=== PATIENT | male | born 1985 ===

== ENCOUNTER 2018-01-11 14:56 | Inpatient (IN) | payer MEDICARE, MEDICAID ==
[2018-01-11 14:56] VITALS: BMI 20.2
[2018-01-11 15:18] VITALS: O2SAT 98
--- NOTE | 2018-01-11 15:41 | ED PDOC ---
HPI: Psych/Substance Abuse Time Seen by Provider: 01/11/18 15:21 Chief Complaint (Nursing): Psychiatric Evaluation Chief Complaint (Provider): Psychiatric Evaluation History Per: Patient History/Exam Limitations: no limitations Onset/Duration Of Symptoms: Days (x6 weeks) Current Symptoms Are (Timing): Still Present Additional Complaint(s): 32 year old male with a history of depression, bipolar disorder, and paranoid schizophrenia (noting he has been off medication for over a year) presents to the ED for psychiatric evaluation. Patient states he has been feeling suicidal the past six weeks ever since him and his girlfriend broke up. He reports he does not currently have a specific plan, but in the past he admits to prior attempts by hanging himself. Otherwise, (-) physical complaints, (-) auditory hallucinations, (-) visual hallucinations, (-) homicidal ideation. PMD: Luis Lew Past Medical History Reviewed: Historical Data, Nursing Documentation, Vital Signs Vital Signs: Last Vital Signs Temp 97 F L 01/11/18 15:15 Pulse 110 H 01/11/18 15:15 Resp 20 01/11/18 15:15 BP 113/76 01/11/18 15:15 Pulse Ox 98 01/11/18 15:15 - Medical History PMH: Anxiety, Bipolar Disorder, Depression, Paranoia, Personality Disorder ( Borderline Personality), Schizophrenia - Surgical History Other surgeries: wisdom teeth extraction - Family History Family History: States: Unknown Family Hx - Social History Current smoker - smoking cessation education provided: No Alcohol: None Drugs: Cannabis - Home Medications Home Medications: Ambulatory Orders Medication Instructions Recorded No Known Home Med 12/24/17 - Allergies Allergies/Adverse Reactions: Allergies Allergy/AdvReac Type Severity Reaction Status Date / Time olanzapine [From Zyprexa] AdvReac RASH Verified 01/11/18 15:14 Review of Systems ROS Statement: Except As Marked, All Systems Reviewed And Found Negative Psych: Positive for: Suicidal ideation (but no homicidal ideation). Negative for: Other (auditory or visual hallucinations) Physical Exam - Reviewed Nursing Documentation Reviewed: Yes Vital Signs Reviewed: Yes - Physical Exam Comments: GENERAL APPEARANCE: Patient is awake, alert, oriented x 3, in no acute distress. Avoids eye contact with examiner. SKIN: Warm, dry; (-) cyanosis EYES: (-) conjunctival pallor, (-) scleral icterus, (-) nystagmus. ENMT: Mucous membranes moist. Airway patent: (-) stridor. NECK: Supple, FROM (-) tenderness, (-) stiffness, (-) lymphadenopathy. HEART AND CARDIOVASCULAR: (-) irregularity; (-) murmur, (-) gallop. CHEST AND RESPIRATORY: (-) rales, (-) rhonchi, (-) wheezes; breath sounds equal. Respirations even and nonlabored. ABDOMEN: Soft, (-) distention, (-) tenderness, (-) guarding. NEURO AND PSYCH: Mental status as above. 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 Pupils equal and reactive; EOMI and painless; (-) facial asymmetry; uvula midline. Gait steady, speech clear. - Laboratory Results Result Diagrams: 01/11/18 17:22 01/11/18 17:22 - ECG O2 Sat by Pulse Oximetry: 98 (RA) Pulse Ox Interpretation: Normal Medical Decision Making Medical Decision Making: Time: 15:24 Initial Impression: psychiatric evaluation, depression Initial Plan: --1:1 obsevation --Crisis evaluation --Re-evaluation 1635 Per crisis evaluation, patient to be admitted for schizophrenia per Dr Thomas. CBC, CMP, U/A, Urine drug screen, and Alcohol serum ordered. 1800 On exam, patient remains AAOx3, in no acute distress. On exam, neck is supple, lungs CTA, cardiac RRR, abdomen is soft and non-tender, neuro exam shows no focal findings. Repeat HR: 89. Vitals stable. Labs reviewed and grossly unremarkable. Utox (+) cannabinoids. Arrangements made for admission to psychiatry. Scribe Attestation: Documented by Stephanie Otoole, acting as a scribe for Ping Castillo PA-C. Provider Scribe Attestation: All medical record entries made by the Scribe were at my direction and personally dictated by me. I have reviewed the chart and agree that the record accurately reflects my personal performance of the history, physical exam, medical decision making, and the department course for this patient. I have also personally directed, reviewed, and agree with the discharge instructions and disposition. Disposition - Clinical Impression Clinical Impression: Schizophrenia - Patient ED Disposition Is Patient to be Admitted: Yes Counseled Patient/Family Regarding: Diagnosis - Disposition Disposition Time: 18:04 Condition: FAIR - Pt Status Changed To: Hospital Disposition Of: Inpatient - Admit Certification Admit to Inpatient:: After my assessment, the patient will require hospitalization for at least two midnights. This is because of the severity of symptoms shown, intensity of services needed, and/or the medical risk in this patient being treated as an outpatient. - POA Present On Arrival: None Results - Lab Results Lab Results: 01/11/18 01/11/18 01/11/18 17:22 17:22 17:22 WBC 5.7 RBC 4.18 L Hgb 12.6 Hct 37.3 MCV 89.0 MCH 30.2 MCHC 33.9 RDW 13.4 Plt Count 244 MPV 7.5 Neut % (Auto) 49.7 L Lymph % (Auto) 31.4 Lassen % (Auto) 15.7 H Eos % (Auto) 2.6 Baso % (Auto) 0.6 Neut # (Auto) 2.8 Lymph # (Auto) 1.8 Lassen # (Auto) 0.9 H Eos # (Auto) 0.1 Baso # (Auto) 0.0 Sodium Potassium Chloride Carbon Dioxide Anion Gap BUN Creatinine Est GFR ( Amer) Est GFR (Non-Af Amer) Random Glucose Calcium Total Bilirubin AST ALT Alkaline Phosphatase Total Protein Albumin Globulin Albumin/Globulin Ratio Urine Color Straw Urine Clarity Clear Urine pH 6.0 Ur Specific [place] 1.008 Urine Protein Negative Urine Glucose (UA) Neg Urine Ketones Negative Urine Blood Negative Urine Nitrate Negative Urine Bilirubin Negative Urine Urobilinogen 0.2-1.0 Ur Leukocyte Esterase Neg Urine RBC (Auto) < 1 Urine Microscopic WBC 1 Ur Squamous Epith Cells < 1 Urine Bacteria Rare Urine Opiates Screen Negative Urine Methadone Screen Negative Ur Barbiturates Screen Negative Ur Phencyclidine Scrn Negative Ur Amphetamines Screen Negative U Benzodiazepines Scrn Negative U Oth Cocaine Metabols Negative U Cannabinoids Screen Positive H Alcohol, Quantitative 01/11/18 17:22 WBC RBC Hgb Hct MCV MCH MCHC RDW Plt Count MPV Neut % (Auto) Lymph % (Auto) Lassen % (Auto) Eos % (Auto) Baso % (Auto) Neut # (Auto) Lymph # (Auto) Lassen # (Auto) Eos # (Auto) Baso # (Auto) Sodium 139 Potassium 4.0 Chloride 103 Carbon Dioxide 25 Anion Gap 15 BUN 7 L Creatinine 0.8 Est GFR ( Amer) > 60 Est GFR (Non-Af Amer) > 60 Random Glucose 92 Calcium 8.4 Total Bilirubin 0.3 AST 20 ALT 26 Alkaline Phosphatase 74 Total Protein 6.2 L Albumin 3.8 Globulin 2.4 Albumin/Globulin Ratio 1.6 Urine Color Urine Clarity Urine pH Ur Specific [place] Urine Protein Urine Glucose (UA) Urine Ketones Urine Blood Urine Nitrate Urine Bilirubin Urine Urobilinogen Ur Leukocyte Esterase Urine RBC (Auto) Urine Microscopic WBC Ur Squamous Epith Cells Urine Bacteria Urine Opiates Screen Urine Methadone Screen Ur Barbiturates Screen Ur Phencyclidine Scrn Ur Amphetamines Screen U Benzodiazepines Scrn U Oth Cocaine Metabols U Cannabinoids Screen Alcohol, Quantitative < 10
[2018-01-11 17:29] LABS: BASO % 0.6 % (0.0-2.0); EOS # 0.1 K/uL (0.0-0.7); EOS % 2.6 % (0.0-4.0); HEMOGLOBIN 12.6 g/dL (12.0-18.0); LYMPH # 1.8 K/uL (1.0-4.3); LYMPH % 31.4 % (20.0-40.0); MEAN CORPUSCULAR HEMOGLOBIN 30.2 pg (27.0-31.0); MEAN CORPUSCULAR HGB CONC 33.9 g/dL (33.0-37.0); MEAN PLATELET VOLUME 7.5 fl (7.2-11.7); MONO # 0.9 K/uL (0.0-0.8); MONO % 15.7 % (0.0-10.0); NEUT # 2.8 K/uL (1.8-7.0); NEUT % 49.7 % (50.0-75.0); NRBC % 0.1 % (0.0-0.0); RBC 4.18 Mil/uL (4.40-5.90); RED CELL DISTRIBUTION WIDTH 13.4 % (11.5-14.5); WHITE BLOOD COUNT 5.7 K/uL (4.8-10.8)
[2018-01-11 17:30] LABS: SQUAMOUS EPITHIAL < 1 /hpf (0-5); URINE BACTERIA RARE (<OCC); URINE BILIRUBIN NEGATIVE (NEGATIVE); URINE BLOOD NEGATIVE (NEGATIVE); URINE CLARITY CLEAR (Clear); URINE COLOR STRAW (YELLOW); URINE GLUCOSE (UA) NEG (Normal); URINE LEUKOCYTE ESTERASE NEG Leu/uL (Negative); URINE PROTEIN NEGATIVE (NEGATIVE); URINE UROBILINOGEN 0.2-1.0 mg/dL (0.2-1.0)
[2018-01-11 17:48] LABS: ALB/GLOB RATIO 1.6 (1.0-2.1); ALBUMIN 3.8 g/dL (3.5-5.0); ALT/SGPT 26 U/L (21-72); AST/SGOT 20 U/L (17-59); BLOOD UREA NITROGEN 7 mg/dl (9-20); CALCIUM 8.4 mg/dL (8.4-10.2); GFR AFRICAN-AMERICAN > 60; GFR NON-AFRICAN AMERICAN > 60
[2018-01-11 17:56] LABS: BARBITURATES, UR NEGATIVE (NEGATIVE); BENZODIAZEPINES, UR NEGATIVE (NEGATIVE); OPIATES, UR NEGATIVE (NEGATIVE); PHENCYCLIDINE, UR NEGATIVE (NEGATIVE)
[2018-01-11] MEDS ORDERED: DiphenhydrAMINE 50 mg/ml Inj IM PRN (20:19)
[2018-01-11] MEDS ORDERED: Magnesium Hydroxide Susp 30 ml UD PO PRN (20:19)
[2018-01-11] MEDS ORDERED: Alum-Mag Hydrox-Simethicone Susp (30 mL) PO PRN (20:19)
--- NOTE | 2018-01-11 20:37 | PCM.BM ---
<Shantel Hurd - Last Filed: 01/11/18 20:36> Treatment Plan Problems - Problems identified on initial assessmt Altered Sleep Patterns Date Initiated: 01/11/18 Time Initiated: 20:36 Assessment reference: NA Status: Active Medication nonadherence Date Initiated: 01/11/18 Time Initiated: 20:36 Assessment reference: NA Status: Active Treatment assets and liabiliti Patient Assests: cooperative, resourceful, self-reliant, ADL independent, physically healthy, negotiates basic needs, cognitively intact Patient Liabilities: live alone, financial problems, poor support system, relationship conflicts, substance abuse - Milieu Protocol Maintain good personal hygiene: daily Encourage regular showers, daily Remind patient to perform daily oral care, daily Assist patient to perform ADL's Conduct patient checks and document Observation sheet: Q15 minutes Maintain personal safety: every shift Educate patient to report safety concerns to staff, every shift Monitor environment for contraband/sharps Medication safety: Monitor for expected outcome, potential side effects: every shift, Assess barriers to learning: every shift, Assess readiness for medication education: every shift <Lisha Thomas - Last Filed: 01/15/18 09:23> - Diagnosis (1) Schizophrenia Status: Chronic Interventions: Medication management, Individual and group therapy, Psychoeducation 01/15/18 09:23 <Lino Mendoza - Last Filed: 01/16/18 11:18> Treatment Plan Problems - Problems identified on initial assessmt Altered Thought Process Date Initiated: 01/14/18 Time Initiated: 10:16 Assessment reference: NA Status: Active Family Contact Family involvement: Family/SO is involved Family contact: Patient declines to allow family contact at present Family contact name: Pt declined. - Goals for Treatment Patient goals for treatment: Pt reported he would like to be restarted on the correct medications so he can concentrate, organize his thoughts and his hallucinations and delusions can be diminished. Discharge/Continuing Care - Education Needs Education Needs: Family Medication, Family Diagnosis/Disease Process, Family Coping Skills, Family Community resources, Family Aftercare Safety Plan, Patient Medication, Patient Diagnosis/Disease Process, Patient Coping Skills, Patient Community resources, Patient Aftercare Safety Plan - Discharge Discharge Criteria: Tolerates medication w/o severe side effects, Free of paranoid thoughts, Free of agitation, Normal sleep pattern, Ability to care for self, Reduction of target symptoms Discharge to:: Other ([facility].) - Treatment Team Participation Patient/Family/SO Statement: 01/15/18 11:18 Pt reported that his anxiety goes up and down, and he is having a difficult time getting a hold of it. Pt admitted to feeling depressed recently with symptoms of uneasiness and paranoia. Pt admitted that the paranoia makes him feel unsafe on the unit. Palperidone injection given on 01/14/18 with next one scheduled for 01/21/18. Discussed with Family/SO: No Was Patient/Family/SO present at Treatment Team Meeting: Yes <Srikanth Rolle - Last Filed: 01/25/18 08:30> - Diagnosis (1) Psychosis Status: Acute Interventions: pharmacotherapy 01/25/18 08:30
[2018-01-12 10:37] LABS: T4 4.88 ug/dl (5.5-11.0)
--- NOTE | 2018-01-12 10:46 | PCM.PSYCH ---
Initial Psychiatric Evaluation - Initial Psychiatric Evaluation Type of Admission: Voluntary Legal Status: Capacity Chief Complaint (in patient's own words): "I'm depressed and suicidal." Patient's Reaction to Hospitalization: HPI: 32 yo male w/ h/o schizophrenia presents w/ worsening depression, suicidal ideation and auditory/visual/tactile hallucinations in the context of non- compliance with treatment and medications. Patient reports that he has an "understanding" of things around him and can hear things, see things and even feel things on his body, but he was unable to specify what that means. He denies current SI, but states that he had SI yesterday w/o specific plan. NO HI. +Paranoia that people are watching him and telling others to "keep an eye on me." He feels like he is under constant observation. He does not want to take Seroquel, Risperdal or Haldol at this time. PPHx: Multiple past voluntary and involuntary psychiatric admissions PMHx: Denies acute medical issues ALL: Zyprexa (rash) SHx: Lives at [facility], smokes MJ; smokes 4 cig/day (declined smoking cessation); denies ETOH Current Medications: Active Medications Generic Name Dose Route Start Last Admin Trade Name Freq PRN Reason Stop Dose Admin Acetaminophen 650 mg 01/11/18 20:19 Tylenol 325mg Tab PO Q4 PRN pain level 4-7 Al Hydrox/Mg Hydrox/Simethicone 30 ml 01/11/18 20:19 Maalox Plus 30 Ml PO Q4 PRN Dyspepsia Diphenhydramine HCl 50 mg 01/11/18 20:19 Benadryl IM Q6 PRN Extrapyramidal S/S Unable PO Diphenhydramine HCl 50 mg 01/11/18 20:19 Benadryl PO Q6 PRN Extrapyramidal Symptoms Diphenhydramine HCl 50 mg 01/11/18 20:28 Benadryl PO HS PRN Sleep Haloperidol 5 mg 01/11/18 20:19 Haldol PO Q4 PRN Agitation Haloperidol Lactate 5 mg 01/11/18 20:19 Haldol IM Q4 PRN Agitation, Unable to Take PO Lorazepam 1 mg 01/11/18 20:19 Ativan IM Q8 PRN Anxiety/Agitation,Unable PO Lorazepam 1 mg 01/11/18 20:19 Ativan PO Q8 PRN Anxiety/Agitation Magnesium Hydroxide 30 ml 01/11/18 20:19 Milk Of Magnesia PO HS PRN Constipation Paliperidone 6 mg 01/12/18 10:45 Invega PO DAILY JAMES Past Psychiatric History - Past Psychiatric History Previous Treatment History: Inpatient Pertinent Medical Hx (Current Medical&Sleep Prob, Allergies): Allergies Allergy/AdvReac Type Severity Reaction Status Date / Time olanzapine [From Zyprexa] AdvReac RASH Verified 01/11/18 15:14 No Known Home Med 12/24/17 Review of Systems - Psychiatric Psychiatric: As Per HPI, Auditory Hallucinations, Depression, Difficulty Concentrating, Hallucinations, Hopelessness, Paranoia, Suicidal Ideation, Visual Hallucinations, Tactile Hallucinations Mental Status Examination - Personal Presentation Personal Presentation: Looks stated age - Affect Affect: Constricted - Motor Activity Motor Activity: Calm - Reliability in Providing Information Reliability in Providing Information: Poor, due to alteration in thoughts - Speech Speech: Disorganized, Coherent - Mood Mood: Depressed - Formal Thought Process Formal Thought Process: Hallucinations, Delusions, Paranoia, Loosening of associations - Hallucinations/Delusions Hallucinations: Visual, Auditory - Obsessions/Compulsions Obsessions: No Compulsions: No - Cognitive Functions Orientation: Person, Place, Situation, Time Sensorium: Alert Attention/Concentration: Attentive Estimate of Intelligence: Average Judgement: Imparied, as evidence by: Poor judgement Memory: Recent intact, as evidence by: Ability to recall events of the day - Risk Risk: Diminished functioning - Strength & Assets Inventory Strength & Assets Inventory: Cooperative DSM 5 DX - DSM 5 DSM 5 Diagnosis: Schizophrenia - Recommended/Plan of Treatment Treatment Recommendations and Plan of Treatment: Schizophrenia -Admit to psychiatry unit -Start Invega and Klonopin -Individual and group therapy -Medicine consult -Psychoeducation -Disposition planning Projected ELOS: 7-14 days Discharge Plan and Discharge Criteria: Discharge when patient is psychiatrically stable - Smoking Cessation Smoking Cessation Initiated: No Reason for not providing: Patient declined
[2018-01-12] MEDS: Paliperidone 6 MG ER TAB PO SCH (12:42)
--- NOTE | 2018-01-12 18:52 | CP.PCM.CON ---
History of Present Illness - History of Present Illness History of Present Illness: 32 yo male with history of schizophrenia admitted in psyche unit because of worsening depression and suicidal ideation. Review of Systems - Review of Systems All systems: reviewed and no additional remarkable complaints except (aside from those mentioned above, 12 point system review were negative by me) Past Patient History - Infectious Disease Hx of Infectious Diseases: None - Tetanus Immunizations Tetanus Immunization: Up to Date - Past Social History Smoking Status: Light Smoker < 10 Cigarettes Daily Chewing Tobacco Use: No Cigar Use: No Alcohol: None Drugs: Cannabis - CARDIAC Hx Hypertension: No - PULMONARY Hx Tuberculosis: No - NEUROLOGICAL Hx Seizures: No - HEENT Hx HEENT Problems: No - RENAL Hx Chronic Kidney Disease: No - ENDOCRINE/METABOLIC Hx Endocrine Disorders: No - HEMATOLOGICAL/ONCOLOGICAL Hx Human Immunodeficiency Virus (HIV): No - INTEGUMENTARY Hx Dermatological Problems: No - MUSCULOSKELETAL/RHEUMATOLOGICAL Hx Musculoskeletal Disorders: No - GASTROINTESTINAL Hx Gastrointestinal Disorders: No - GENITOURINARY/GYNECOLOGICAL Hx Sexually Transmitted Disorders: No - PSYCHIATRIC Hx Substance Use: Yes (THC) - SURGICAL HISTORY Hx Surgeries: No - ANESTHESIA Hx Anesthesia: No Meds Allergies/Adverse Reactions: Allergies Allergy/AdvReac Type Severity Reaction Status Date / Time olanzapine [From Zyprexa] AdvReac RASH Verified 01/11/18 15:14 - Medications Medications: Current Medications Acetaminophen (Tylenol 325mg Tab) 650 mg PO Q4 PRN PRN Reason: pain level 4-7 Al Hydrox/Mg Hydrox/Simethicone (Maalox Plus 30 Ml) 30 ml PO Q4 PRN PRN Reason: Dyspepsia Clonazepam (Klonopin) 0.5 mg PO BID JAMES Last Admin: 01/12/18 17:42 Dose: 0.5 mg Diphenhydramine HCl (Benadryl) 50 mg IM Q6 PRN PRN Reason: Extrapyramidal S/S Unable PO Diphenhydramine HCl (Benadryl) 50 mg PO Q6 PRN PRN Reason: Extrapyramidal Symptoms Diphenhydramine HCl (Benadryl) 50 mg PO HS PRN PRN Reason: Sleep Haloperidol (Haldol) 5 mg PO Q4 PRN PRN Reason: Agitation Haloperidol Lactate (Haldol) 5 mg IM Q4 PRN PRN Reason: Agitation, Unable to Take PO Lorazepam (Ativan) 1 mg IM Q8 PRN PRN Reason: Anxiety/Agitation,Unable PO Lorazepam (Ativan) 1 mg PO Q8 PRN PRN Reason: Anxiety/Agitation Magnesium Hydroxide (Milk Of Magnesia) 30 ml PO HS PRN PRN Reason: Constipation Paliperidone (Invega) 6 mg PO DAILY JAMES Last Admin: 01/12/18 12:42 Dose: 6 mg Physical Exam - Constitutional Appears: No Acute Distress - Head Exam Head Exam: ATRAUMATIC - Eye Exam Eye Exam: absent: Scleral icterus - ENT Exam ENT Exam: Mucous Membranes Moist - Neck Exam Neck exam: Negative for: Meningismus - Respiratory Exam Respiratory Exam: absent: Rales, Rhonchi, Wheezes, Respiratory Distress - Cardiovascular Exam Cardiovascular Exam: REGULAR RHYTHM, +S1, +S2 - GI/Abdominal Exam GI & Abdominal Exam: Soft. absent: Tenderness - Rectal Exam Rectal Exam: Deferred - Extremities Exam Extremities exam: Negative for: calf tenderness, pedal edema - Back Exam Back exam: NORMAL INSPECTION - Neurological Exam Neurological exam: Alert, Oriented x3 - Psychiatric Exam Psychiatric exam: Anxious - Skin Skin Exam: Dry, Intact Results - Vital Signs Recent Vital Signs: Last Vital Signs Temp 97.5 F L 01/12/18 10:15 Pulse 79 01/12/18 10:15 Resp 18 01/12/18 10:15 BP 115/75 01/12/18 10:15 Pulse Ox 98 01/11/18 18:11 - Labs Result Diagrams: 01/11/18 17:22 01/11/18 17:22 Labs: Laboratory Results - last 24 hr 01/12/18 09:41 Triglycerides 106 Cholesterol 138 LDL Cholesterol Direct 67 HDL Cholesterol 46 Thyroxine (T4) 4.88 L TSH 3rd Generation 1.31 Assessment & Plan (1) Depression Status: Acute Comment: psyche is managing
--- NOTE | 2018-01-13 08:09 | PCM.PYCHPN ---
Psychiatric Progress Note - Psychiatric Progress Note Patient seen today, length of contact: Patient evaluated, case discussed with team, chart reviewed Patient Chief Complaint: "I'm depressed." Problems Identified/Issues Discussed: Patient continues to report feeling that he has a special "understanding" of things. He continues to be paranoid that people are watching him. He continues to be depressed but denies active suicidal ideation/plan/intent. No adverse effects to medications reported. Medication Change: No Medical Record Reviewed: Yes Consults ordered or reviewed: Medicine consult Mental Status Examination - Cognitive Function Orientation: Person, Place, Situation, Time Memory: Intact Attention: WNL Concentration: WNL Association: Loose Fund of Knowledge: WNL Decription of patient's judgement and insights: Poor I/J - Mood Mood: Depressed - Affect Affect: Constricted - Formal Thought Process Formal Thought Process: Hallucinations, Delusions, Paranoia, Loosening of associations Psychotic Thoughts and Behaviors: +special "understanding" and paranoia - Suicidal Ideation Suicidal Ideation: No - Homicidal Ideation Homicidal Ideation: No Goal/Treatment Plan - Goal/Treatment Plan Need for Continued Stay: Remain at risks for inpatient hospitalization, Severe depression anxiety, Discharge may exacerbated symptoms Progress Toward Problem(s) and Goals/Treatment Plan: Schizophrenia -Continue Invega and Klonopin -Individual and group therapy -Medicine consult -Psychoeducation -Disposition planning Estimated Date of D/C: 01/18/18
[2018-01-13] MEDS: Paliperidone 6 MG ER TAB PO SCH (08:28)
[2018-01-14] MEDS: Paliperidone 6 MG ER TAB PO SCH (09:04)
[2018-01-14] MEDS ORDERED: Paliperidone Palmitate 234 MG/1.5 ML SYR IM ONE (09:58)
--- NOTE | 2018-01-14 10:01 | PCM.PYCHPN ---
Psychiatric Progress Note - Psychiatric Progress Note Patient seen today, length of contact: Patient evaluated, case discussed with team, chart reviewed Patient Chief Complaint: "I'm depressed." Problems Identified/Issues Discussed: Patient continues to report feeling that he has a special "understanding" of things. +Continued paranoia and AH. He continues to be depressed but denies active suicidal ideation/plan/intent. No adverse effects to medications reported. We discussed starting Paliperidone IM; r/b/se reviewed; patient is agreeable at this time. Medication Change: Yes (Start Paliperidone IM) Medical Record Reviewed: Yes Consults ordered or reviewed: Medicine consult Mental Status Examination - Cognitive Function Orientation: Person, Place, Situation, Time Memory: Intact Attention: WNL Concentration: WNL Association: Loose Fund of Knowledge: WNL Decription of patient's judgement and insights: Poor I/J - Mood Mood: Depressed - Affect Affect: Constricted - Formal Thought Process Formal Thought Process: Hallucinations, Delusions, Paranoia, Loosening of associations Psychotic Thoughts and Behaviors: +special "understanding" and paranoia - Suicidal Ideation Suicidal Ideation: No - Homicidal Ideation Homicidal Ideation: No Goal/Treatment Plan - Goal/Treatment Plan Need for Continued Stay: Remain at risks for inpatient hospitalization, Severe depression anxiety, Discharge may exacerbated symptoms Progress Toward Problem(s) and Goals/Treatment Plan: Schizophrenia -Continue Invega and Klonopin -Start Invega Sustenna 234 mg IM first dose now; second dose on 01/21/18 -Individual and group therapy -Medicine consult -Psychoeducation -Disposition planning Estimated Date of D/C: 01/23/18
--- NOTE | 2018-01-14 10:16 | PCM.BM ---
Treatment Plan Problems - Problems identified on initial assessmt Altered Sleep Patterns Date Initiated: 01/11/18 Time Initiated: 20:36 Assessment reference: NA Status: Active Medication nonadherence Date Initiated: 01/11/18 Time Initiated: 20:36 Assessment reference: NA Status: Active Altered Thought Process Date Initiated: 01/14/18 Time Initiated: 10:16 Assessment reference: NA Status: Active Treatment assets and liabiliti Patient Assests: cooperative, resourceful, self-reliant, ADL independent, physically healthy, negotiates basic needs, cognitively intact Patient Liabilities: live alone, financial problems, poor support system, relationship conflicts, substance abuse - Milieu Protocol Maintain good personal hygiene: daily Encourage regular showers, daily Remind patient to perform daily oral care, daily Assist patient to perform ADL's Conduct patient checks and document Observation sheet: Q15 minutes Maintain personal safety: every shift Educate patient to report safety concerns to staff, every shift Monitor environment for contraband/sharps Medication safety: Monitor for expected outcome, potential side effects: every shift, Assess barriers to learning: every shift, Assess readiness for medication education: every shift Milieu Narrative: Schizophrenia -Continue Invega and Klonopin -Start Invega Sustenna 234 mg IM first dose now; second dose on 01/21/18 -Individual and group therapy -Medicine consult -Psychoeducation -Disposition planning Family Contact Family involvement: Family/SO is involved Family contact: Patient declines to allow family contact at present Family contact name: Pt declined. - Goals for Treatment Patient goals for treatment: Pt reported he would like to be restarted on the correct medications so he can concentrate, organize his thoughts and his hallucinations and delusions can be diminished. Discharge/Continuing Care - Education Needs Education Needs: Family Medication, Family Diagnosis/Disease Process, Family Coping Skills, Family Community resources, Family Aftercare Safety Plan, Patient Medication, Patient Diagnosis/Disease Process, Patient Coping Skills, Patient Community resources, Patient Aftercare Safety Plan - Discharge Discharge Criteria: Tolerates medication w/o severe side effects, Free of paranoid thoughts, Free of agitation, Normal sleep pattern, Ability to care for self, Reduction of target symptoms Discharge to:: Other ([facility].) - Treatment Team Participation Patient/Family/SO Statement: Schizophrenia -Continue Invega and Klonopin -Start Invega Sustenna 234 mg IM first dose now; second dose on 7/16/18 -Individual and group therapy -Medicine consult -Psychoeducation -Disposition planning Discussed with Family/SO: No Was Patient/Family/SO present at Treatment Team Meeting: Yes
[2018-01-15] MEDS: Paliperidone 6 MG ER TAB PO SCH (08:58)
--- NOTE | 2018-01-15 10:45 | PCM.PYCHPN ---
Psychiatric Progress Note - Psychiatric Progress Note Patient seen today, length of contact: Patient evaluated, case discussed with team, chart reviewed Patient Chief Complaint: "I'm depressed." Problems Identified/Issues Discussed: Patient continues to report feeling that he has a special "understanding" of things. +Continued paranoia and AH. He continues to be depressed and anxious but denies active suicidal ideation/plan/intent. No adverse effects to medications reported. Medication Change: No Medical Record Reviewed: Yes Consults ordered or reviewed: Medicine consult Mental Status Examination - Cognitive Function Orientation: Person, Place, Situation, Time Memory: Intact Attention: WNL Concentration: WNL Association: Loose Fund of Knowledge: WNL Decription of patient's judgement and insights: Poor I/J - Mood Mood: Depressed - Affect Affect: Constricted - Formal Thought Process Formal Thought Process: Hallucinations, Delusions, Paranoia, Loosening of associations Psychotic Thoughts and Behaviors: +special "understanding" and paranoia - Suicidal Ideation Suicidal Ideation: No - Homicidal Ideation Homicidal Ideation: No Goal/Treatment Plan - Goal/Treatment Plan Need for Continued Stay: Remain at risks for inpatient hospitalization, Severe depression anxiety, Discharge may exacerbated symptoms Progress Toward Problem(s) and Goals/Treatment Plan: Schizophrenia -Continue Invega and Klonopin -Invega Sustenna 234 mg IM first dose given 01/14/18; second dose (156 mg) on 01/21 -Individual and group therapy -Medicine consult -Psychoeducation -Disposition planning Estimated Date of D/C: 01/23/18
[2018-01-16] MEDS: Paliperidone 6 MG ER TAB PO SCH (09:43)
--- NOTE | 2018-01-16 11:53 | PCM.PYCHPN ---
Psychiatric Progress Note - Psychiatric Progress Note Patient seen today, length of contact: Patient evaluated, case discussed with team, chart reviewed Patient Chief Complaint: "I'm depressed." Problems Identified/Issues Discussed: Patient continues to report feeling that he has a special "understanding" of things. +Continued AH, +Paranoia. He continues to be depressed and anxious but denies active suicidal ideation/plan/intent. No adverse effects to medications reported. Medication Change: No Medical Record Reviewed: Yes Consults ordered or reviewed: Medicine consult Mental Status Examination - Cognitive Function Orientation: Person, Place, Situation, Time Memory: Intact Attention: WNL Concentration: WNL Association: Loose Fund of Knowledge: WNL Decription of patient's judgement and insights: Poor I/J - Mood Mood: Depressed - Affect Affect: Constricted - Formal Thought Process Formal Thought Process: Hallucinations, Delusions, Paranoia, Loosening of associations Psychotic Thoughts and Behaviors: +special "understanding" and paranoia - Suicidal Ideation Suicidal Ideation: No - Homicidal Ideation Homicidal Ideation: No Goal/Treatment Plan - Goal/Treatment Plan Need for Continued Stay: Remain at risks for inpatient hospitalization, Severe depression anxiety, Discharge may exacerbated symptoms Progress Toward Problem(s) and Goals/Treatment Plan: Schizophrenia -Continue Invega and Klonopin -Invega Sustenna 234 mg IM first dose given 01/14/18; second dose (156 mg) on 01/21 -Individual and group therapy -Medicine consult -Psychoeducation -Disposition planning Estimated Date of D/C: 01/23/18
[2018-01-17] MEDS: Paliperidone 6 MG ER TAB PO SCH (08:45)
--- NOTE | 2018-01-17 10:19 | PCM.PYCHPN ---
Psychiatric Progress Note - Psychiatric Progress Note Patient seen today, length of contact: Patient evaluated, case discussed with team, chart reviewed Patient Chief Complaint: "I'm depressed." Problems Identified/Issues Discussed: Patient reports that he feels depressed and distressed that he missed a court date due to an assault charge, but states that he does not recall assaulting anyone. He denies any ideation to harm self or others. Patient continues to report feeling that he has a special "understanding" of things. +Continued AH, +Paranoia. No active suicidal ideation/plan/intent. No adverse effects to medications reported. Medication Change: No Medical Record Reviewed: Yes Consults ordered or reviewed: Medicine consult Mental Status Examination - Cognitive Function Orientation: Person, Place, Situation, Time Memory: Intact Attention: WNL Concentration: WNL Association: Loose Fund of Knowledge: WNL Decription of patient's judgement and insights: Poor I/J - Mood Mood: Depressed - Affect Affect: Constricted - Formal Thought Process Formal Thought Process: Hallucinations, Delusions, Paranoia, Loosening of associations Psychotic Thoughts and Behaviors: +special "understanding" and paranoia - Suicidal Ideation Suicidal Ideation: No - Homicidal Ideation Homicidal Ideation: No Goal/Treatment Plan - Goal/Treatment Plan Need for Continued Stay: Remain at risks for inpatient hospitalization, Severe depression anxiety, Discharge may exacerbated symptoms Progress Toward Problem(s) and Goals/Treatment Plan: Schizophrenia -Continue Invega and Klonopin -Invega Sustenna 234 mg IM first dose given 01/14/18; second dose (156 mg) on 01/21 -Individual and group therapy -Medicine consult -Psychoeducation -Disposition planning Estimated Date of D/C: 01/23/18
[2018-01-18] MEDS: Paliperidone 6 MG ER TAB PO SCH (08:33)
--- NOTE | 2018-01-18 09:58 | PCM.PYCHPN ---
Psychiatric Progress Note - Psychiatric Progress Note Patient seen today, length of contact: Patient evaluated, case discussed with team, chart reviewed Patient Chief Complaint: "I'm depressed." Problems Identified/Issues Discussed: Patient reports that he feels depressed. Patient continues to report feeling that he has a special "understanding" of things. +Continued AH, +Paranoia. No active suicidal ideation/plan/intent. No adverse effects to medications reported. Medication Change: No Medical Record Reviewed: Yes Consults ordered or reviewed: Medicine consult Mental Status Examination - Cognitive Function Orientation: Person, Place, Situation, Time Memory: Intact Attention: WNL Concentration: WNL Association: Loose Fund of Knowledge: WNL Decription of patient's judgement and insights: Poor I/J - Mood Mood: Depressed - Affect Affect: Constricted - Formal Thought Process Formal Thought Process: Hallucinations, Delusions, Paranoia, Loosening of associations Psychotic Thoughts and Behaviors: +special "understanding" and paranoia - Suicidal Ideation Suicidal Ideation: No - Homicidal Ideation Homicidal Ideation: No Goal/Treatment Plan - Goal/Treatment Plan Need for Continued Stay: Remain at risks for inpatient hospitalization, Severe depression anxiety, Discharge may exacerbated symptoms Progress Toward Problem(s) and Goals/Treatment Plan: Schizophrenia -Continue Invega and Klonopin -Invega Sustenna 234 mg IM first dose given 01/14/18; second dose (156 mg) on 01/21 -Individual and group therapy -Medicine consult -Psychoeducation -Disposition planning Estimated Date of D/C: 01/23/18
--- NOTE | 2018-01-19 09:08 | PCM.PYCHPN ---
Psychiatric Progress Note - Psychiatric Progress Note Patient seen today, length of contact: Patient evaluated, case discussed with team, chart reviewed Patient Chief Complaint: "I'm depressed." Problems Identified/Issues Discussed: Patient reports having disturbing nightmares. Patient reports that he feels depressed. Patient continues to report feeling that he has a special "understanding" of things. +Paranoia. No active suicidal ideation/plan/ intent. No adverse effects to medications reported. Medication Change: No Medical Record Reviewed: Yes Consults ordered or reviewed: Medicine consult Mental Status Examination - Cognitive Function Orientation: Person, Place, Situation, Time Memory: Intact Attention: WNL Concentration: WNL Association: Loose Fund of Knowledge: WNL Decription of patient's judgement and insights: Poor I/J - Mood Mood: Depressed - Affect Affect: Constricted - Formal Thought Process Formal Thought Process: Hallucinations, Delusions, Paranoia, Loosening of associations Psychotic Thoughts and Behaviors: +special "understanding" and paranoia - Suicidal Ideation Suicidal Ideation: No - Homicidal Ideation Homicidal Ideation: No Goal/Treatment Plan - Goal/Treatment Plan Need for Continued Stay: Remain at risks for inpatient hospitalization, Severe depression anxiety, Discharge may exacerbated symptoms Progress Toward Problem(s) and Goals/Treatment Plan: Schizophrenia -Continue Invega and Klonopin -Invega Sustenna 234 mg IM first dose given 01/14/18; second dose (156 mg) on 01/21 -Individual and group therapy -Medicine consult -Psychoeducation -Disposition planning Estimated Date of D/C: 01/23/18
[2018-01-19] MEDS: Paliperidone 6 MG ER TAB PO SCH (10:43)
[2018-01-20] MEDS: Paliperidone 6 MG ER TAB PO SCH (09:05)
[2018-01-20] MEDS ORDERED: Benzocaine/Menthol (Cepacol) Lozenge PO PRN (13:06)
--- NOTE | 2018-01-20 16:27 | PCM.PYCHPN ---
Psychiatric Progress Note - Psychiatric Progress Note Patient seen today, length of contact: Patient evaluated, case discussed with team, chart reviewed Patient Chief Complaint: pt still feels depressed and still paranoid saying special things happening with cameras looking at him and talking to him.pt remains with poor insight Medication Change: No Medical Record Reviewed: Yes Mental Status Examination - Cognitive Function Orientation: Person, Place, Situation, Time Memory: Intact Attention: WNL Concentration: WNL Association: Loose Fund of Knowledge: WNL - Mood Mood: Depressed - Affect Affect: Constricted - Formal Thought Process Formal Thought Process: Hallucinations, Delusions, Paranoia, Loosening of associations - Suicidal Ideation Suicidal Ideation: No - Homicidal Ideation Homicidal Ideation: No Goal/Treatment Plan - Goal/Treatment Plan Need for Continued Stay: Remain at risks for inpatient hospitalization, Severe depression anxiety, Discharge may exacerbated symptoms Progress Toward Problem(s) and Goals/Treatment Plan: pt has agreed to continue invega and will get his next shot tomorrow. Disposition planning as per dr jocye. Estimated Date of D/C: 01/23/18
[2018-01-21] MEDS ORDERED: Paliperidone 156 mg/1 ml Syringe IM ONE (09:00)
[2018-01-21] MEDS: Paliperidone 6 MG ER TAB PO SCH (09:35)
--- NOTE | 2018-01-21 11:47 | PCM.PYCHPN ---
Psychiatric Progress Note - Psychiatric Progress Note Patient seen today, length of contact: Patient evaluated, case discussed with team, chart reviewed Patient Chief Complaint: pt still feels very anxious and very paranoid saying special things happening with cameras looking at him and talking to him.pt remains with poor insight.pt is still having nightmares and cant sleep . Medication Change: No Medical Record Reviewed: Yes Mental Status Examination - Cognitive Function Orientation: Person, Place, Situation, Time Memory: Intact Attention: WNL Concentration: WNL Association: Loose Fund of Knowledge: WNL - Mood Mood: Depressed - Affect Affect: Constricted - Formal Thought Process Formal Thought Process: Hallucinations, Delusions, Paranoia, Loosening of associations - Suicidal Ideation Suicidal Ideation: No - Homicidal Ideation Homicidal Ideation: No Goal/Treatment Plan - Goal/Treatment Plan Need for Continued Stay: Remain at risks for inpatient hospitalization, Severe depression anxiety, Discharge may exacerbated symptoms Progress Toward Problem(s) and Goals/Treatment Plan: pt has agreed to continue invega and will get his next shot tomorrow. will add minipress 1 mg hs for nightmares . Estimated Date of D/C: 01/23/18
--- NOTE | 2018-01-22 10:42 | PCM.PYCHPN ---
Psychiatric Progress Note - Psychiatric Progress Note Patient seen today, length of contact: Patient evaluated, case discussed with team, chart reviewed Patient Chief Complaint: pt still feels internally preoccupied and fearful of the side effects of invega and does not want to continue taking it.pt is very paranoid saying special things happening with cameras looking at him and talking to him.pt remains with poor insight.pt is still having nightmares and cant sleep . Medication Change: No Medical Record Reviewed: Yes Mental Status Examination - Cognitive Function Orientation: Person, Place, Situation, Time Memory: Intact Attention: WNL Concentration: WNL Association: Loose Fund of Knowledge: WNL - Mood Mood: Depressed - Affect Affect: Constricted - Formal Thought Process Formal Thought Process: Hallucinations, Delusions, Paranoia, Loosening of associations - Suicidal Ideation Suicidal Ideation: No - Homicidal Ideation Homicidal Ideation: No Goal/Treatment Plan - Goal/Treatment Plan Need for Continued Stay: Remain at risks for inpatient hospitalization, Severe depression anxiety, Discharge may exacerbated symptoms Progress Toward Problem(s) and Goals/Treatment Plan: pt has agreed to continue invega and will get his next shot tomorrow. will add minipress 1 mg hs for nightmares . Estimated Date of D/C: 01/23/18
--- NOTE | 2018-01-23 16:49 | PCM.PYCHPN ---
Psychiatric Progress Note - Psychiatric Progress Note Patient seen today, length of contact: Patient evaluated, case discussed with team, chart reviewed Patient Chief Complaint: I am still paranoid Problems Identified/Issues Discussed: pt evaluated, reported he continues to be paranoid feeling he is being watched on the unit by unknown people, pt continues to be unkempt , not attending to personal hygiene, guarded, limited interaction with other patients, delusions of persecution and thought blocking denied any current command hallucinations, denied suicidal or homicidal ideation DSM 5 Symptoms Update: schizophrenia Medication Change: Yes (start invega oral ) Medical Record Reviewed: Yes Mental Status Examination - Cognitive Function Orientation: Person, Place, Situation, Time Memory: Intact Attention: WNL Concentration: WNL Association: Loose Fund of Knowledge: WNL - Mood Mood: Depressed - Affect Affect: Constricted - Formal Thought Process Formal Thought Process: Hallucinations, Delusions, Paranoia, Loosening of associations - Suicidal Ideation Suicidal Ideation: No - Homicidal Ideation Homicidal Ideation: No Goal/Treatment Plan - Goal/Treatment Plan Need for Continued Stay: Remain at risks for inpatient hospitalization, Severe depression anxiety, Discharge may exacerbated symptoms Progress Toward Problem(s) and Goals/Treatment Plan: restart 3mg po invega till the third cycle of invega sustenna group and supportive therapy Estimated Date of D/C: 01/25/18
[2018-01-23] MEDS: Paliperidone 3 MG ER TAB PO SCH (21:27)
--- NOTE | 2018-01-24 15:56 | PCM.PYCHPN ---
Psychiatric Progress Note - Psychiatric Progress Note Patient seen today, length of contact: Patient evaluated, case discussed with team, chart reviewed Patient Chief Complaint: I am willing to go to the program Problems Identified/Issues Discussed: pt evaluated, , less disheveled, speech more goal directed, reported feeling less paranoid and less anxious , showing more insight, agreed to join partial program on discharge denied any current command hallucinations, denied suicidal or homicidal ideation DSM 5 Symptoms Update: schizophrenia Medication Change: No Medical Record Reviewed: Yes Mental Status Examination - Cognitive Function Orientation: Person, Place, Situation, Time Memory: Intact Attention: WNL Concentration: WNL Association: WNL Fund of Knowledge: Poor Decription of patient's judgement and insights: partial insight poor judgement - Mood Mood: Depressed - Affect Affect: Constricted - Formal Thought Process Formal Thought Process: Hallucinations, Delusions, Paranoia, Loosening of associations Psychotic Thoughts and Behaviors: pt reported clearing of of the paranoid delusions - Suicidal Ideation Suicidal Ideation: No - Homicidal Ideation Homicidal Ideation: No Goal/Treatment Plan - Goal/Treatment Plan Need for Continued Stay: Remain at risks for inpatient hospitalization, Severe depression anxiety, Discharge may exacerbated symptoms Progress Toward Problem(s) and Goals/Treatment Plan: 3mg po invega , invega sustenna group and supportive therapy Estimated Date of D/C: 01/25/18
[2018-01-24] MEDS: Paliperidone 3 MG ER TAB PO SCH (21:07)
[2018-01-25 08:33] VITALS: BP 103/66; PULSE 72; RESP 16; TEMP 97.9
--- NOTE | 2018-01-25 13:03 | PCM.PYCHDC ---
Mental Status Examination - Mental Status Examination Orientation: Person, Place, Situation Memory: Intact Affect: Broad Speech: Appropriate Attention: WNL Concentration: WNL Association: WNL Fund of Knowledge: WNL Formal Thought Process: No Impairment Description of patient's judgement and insight: partial insight poor judgement Psychotic Thoughts and Behaviors: pt at current mental status denied any current psychotic symptoms, non elicited Suicidal Ideation: No Current Homicidal Ideation?: No Discharge Summary - Discharge Note Reason for Hospitalization: 32 yo male w/ h/o schizophrenia presents w/ worsening depression, suicidal ideation and auditory/visual/tactile hallucinations in the context of non- compliance with treatment and medications. Patient reports that he has an "understanding" of things around him and can hear things, see things and even feel things on his body, but he was unable to specify what that means. He denies current SI, but states that he had SI yesterday w/o specific plan. NO HI. +Paranoia that people are watching him and telling others to "keep an eye on me." He feels like he is under constant observation. Consultations:: List each consultation separately and include: 1. Reason for request. 2. Findings. 3. Follow-up Summary of Hospital Course include:: 1. Description of specific treatment plan utilized for patients during their course of treatmen. 2. Summarize the time- course for resolution of acute symptoms and/or regressed behaviors. 3. Describe issues identified and worked on during hospitalization. 4. Describe medication utilized. 5. Describe medical problems identified and treated. 6. Reassessment of suicide risk Summary of Hospital Course: pt on admission was guarded , paranoid, disheveled, pt was started on invega, then placed on invega sustenna to ensure compliance, pt was compliant with medications, no reported side effects gradualy showed clearing off of the paranoid delusions, attended groups CBT group and supportive therapy was provided on discharge mental status was stable, pt denied any current suicidal or homicidal ideations, denied psychotic symptoms, non elicited pt was referred by rn social work to [facility] partial program - Diagnosis (1) Psychosis Current Visit: Yes Status: Acute - Final Diagnosis (DSM 5) Condition upon Discharge: FAIR Disposition: HOME/ ROUTINE Follow-up Treatment Plan: 3mg po invega , invega sustenna group and supportive therapy Prescriptions/Medication Reconciliation: clonazePAM [Klonopin] 0.5 mg PO BID #60 tab Paliperidone [Invega] 3 mg PO HS 30 Days #30 ter Prazosin HCl [Minipress] 1 mg PO HS 30 Days #30 cap - Antipsychotic Medications Pt discharged on 2 or more routine antipsychotic medications: No
== END 2018-01-25 14:27 | disposition home or self-care (01) | DRG 885 ==
LOC: H.ER 14:56 → H.ERHOLD 18:04 → H.PSYCH 20:09
PROVIDERS: ADMIT Psychiatry & Neurology Psychiatry; ATTEND Psychiatry & Neurology Psychiatry
PROC: GZHZZZZ Group Psychotherapy (ICD-10-PCS; principal; 2018-01-11)
PROC: GZ56ZZZ Individual Psychotherapy, Supportive (ICD-10-PCS; 2018-01-11)
PROC: GZ58ZZZ Individual Psychotherapy, Cognitive-Behavioral (ICD-10-PCS; 2018-01-11)
DX: F20.0 Paranoid schizophrenia (principal); R45.851 Suicidal ideations; Z91.14 Patient's other noncompliance with medication regimen; Z91.19 Patient's noncompliance with other medical treatment and regimen; F17.210 Nicotine dependence, cigarettes, uncomplicated; F51.5 Nightmare disorder